=== PATIENT | female | born 1955 | race Hispanic/Latino ===

== ENCOUNTER 2017-03-19 18:36 | Emergency (ER) | payer SELFPAY ==
[2017-03-19 19:42] LABS: Basophils % (Auto) 0.6 % (0.0-1.8); Eosinophils % (Auto) 1.3 % (0.0-4.3); Hematocrit 36.7 % (30.3-42.9); Hemoglobin 12.1 gm/dl (10.1-14.3); Mean Corpuscular HGB Conc 33 % (30-34); Mean Corpuscular Hemoglobin 34 pg (28-32); Mean Corpuscular Volume 101 fl (79-97); Platelet Count 269 K/mm3 (140-440); Red Blood Count 3.61 M/mm3 (3.65-5.03); Red Cell Distribution Width 14.7 % (13.2-15.2); White Blood Count 11.1 K/mm3 (4.5-11.0)
[2017-03-19 19:59] LABS: Bacteria,Urine 1+ /HPF (Negative); Bilirubin,Urine NEG (Negative); Blood,Urine MOD (Negative); Ketones,Urine NEG (Negative); Leukocyte Esterase,Urine NEG (Negative); Mucus,Urine FEW /HPF; Nitrite,Urine NEG (Negative); Protein,Urine <15 mg/dL mg/dL (Negative); Urobilinogen,Urine < 2.0 mg/dL (<2.0)
[2017-03-19 20:05] LABS: Anion Gap 19 mmol/L; BUN/Creatinine Ratio 28.33; Blood Urea Nitrogen 17 mg/dL (7-17); Carbon Dioxide 25 mmol/L (22-30); Chloride 102.1 mmol/L (98-107); Glucose 119 mg/dL (65-100); Potassium 3.5 mmol/L (3.6-5.0); Sodium 143 mmol/L (137-145)
[2017-03-19 20:16] LABS: Calcium 12.3 mg/dL (8.4-10.2)
[2017-03-20] MEDS ORDERED: MORPHINE ONE (01:14)
[2017-03-20] MEDS ORDERED: ZOFRAN ONE ×2 (01:14→04:47)
[2017-03-20] MEDS ORDERED: DILAUDID ONE (01:23)
[2017-03-20] MEDS ORDERED: DILAUDID IV ONE (01:33)
[2017-03-20] MEDS ORDERED: ZOFRAN IV ONE ×3 (01:33→04:57)
[2017-03-20] MEDS ORDERED: NACL 0.9% 1000 ML 1,000 ML IV ONE (02:26)
[2017-03-20] MEDS ORDERED: NACL ONE (03:00)
--- NOTE | 2017-03-20 04:26 | Cat Scan Report ---
FINAL REPORT PROCEDURE: CT ABDOMEN PELVIS W CON TECHNIQUE: Computerized axial tomography of the abdomen and pelvis was performed after the IV injection of iodinated nonionic contrast. HISTORY: ABD PAIN COMPARISON: No prior studies are available for comparison. FINDINGS: Visualized lower thorax: No significant abnormality. Liver: Normal size and attenuation. Spleen: Normal size and attenuation. Gallbladder and biliary system: There has been a cholecystectomy. The bile ducts are normal in caliber.. Pancreas: Normal. Adrenals: Normal. Kidneys: There are bilateral kidney cysts. There are no kidney stones. There is no hydronephrosis.. GI tract: There is irregular thickening of the gastric antrum and duodenal bulb with inflammation of the surrounding fat indicating gastritis or ulcer disease. There is no go perforation or obstruction. Tumor is considered unlikely but not excluded. Upper endoscopy may be indicated. The small bowel and colon are unremarkable. The appendix is normal.. Lymph nodes and mesentery: Normal. Vasculature: There is calcified plaque in the abdominal aorta. There is no aneurysm.. Bladder: Normal. Reproductive organs: There has been a hysterectomy.. Peritoneum: There is no ascites, free air, abscess or adenopathy.. Musculoskeletal structures: There has been lower back surgery.. Other: None. IMPRESSION: There is irregular thickening of the gastric antrum and duodenal bulb with inflammation of the surrounding fat indicating gastritis or ulcer disease. There is no og perforation or obstruction. Tumor is considered unlikely but not excluded. Upper endoscopy may be indicated. The small bowel and colon are unremarkable. The appendix is normal.. There has been a cholecystectomy. The bile ducts are normal in caliber.. There are bilateral kidney cysts. There are no kidney stones. There is no hydronephrosis.. There has been a hysterectomy.. There is no ascites, free air, abscess or adenopathy
--- NOTE | 2017-03-20 04:35 | Emergency Department Report ---
HPI - General Chief Complaint: Chest Pain Time Seen by Provider: 03/20/17 01:12 - HPI HPI: Abdominal pain, epigastric pain and burning in sensation, no nausea. Patient states symptomatically gone on for the past 2 months but Worse today. ED Past Medical Hx - Past Medical History Hx Hypertension: Yes Hx GERD: Yes - Surgical History Hx Internal Defibrillator: Yes Additional Surgical History: back surgery x 3. reflux surgery. right foot surgery. kidney surgery - Social History Smoking Status: Current Every Day Smoker - Medications Home Medications: Home Medications Medication Instructions Recorded Confirmed Last Taken Type ALPRAZolam [Xanax] 0.5 mg PO BID PRN 07/03/13 07/03/13 07/02/13 21:00 History Albuterol Sulfate [Ventolin HFA] 2 puff IH Q4H PRN #1 hfa.aer.ad 07/03/13 Unknown Rx Azithromycin [Zithromax Z-IRA] 250 mg PO DAILY #4 tab 07/03/13 Unknown Rx Prednisone 40 mg PO QDAY #8 tablet 07/03/13 Unknown Rx amLODIPine [Norvasc] 10 mg PO DAILY 07/03/13 07/03/13 07/01/13 09:00 History Omeprazole 40 mg PO DAILY #30 capsule. 03/20/17 Unknown Rx ED Review of Systems ROS: Stated complaint: ABD PAIN X 3 DAYS Other details as noted in HPI Comment: All other systems reviewed and negative Cardiovascular: chest pain Gastrointestinal: abdominal pain, nausea Physical Exam - Physical Exam Vital Signs: Vital Signs 03/19/17 03/20/17 19:06 01:36 Temperature 98.2 F 98 F Pulse Rate 91 H 87 Respiratory 18 16 Rate Blood Pressure 140/77 Blood Pressure 158/76 [Left] O2 Sat by Pulse 100 96 Oximetry Physical Exam: Gen. alert and oriented 3 in no distress Head atraumatic normocephalic Eyes PERR LA EOMI Chest regular rate and rhythm normal S1-S2 lungs clear bilaterally Abdomen soft nondistended Back no point tenderness paravertebral tenderness Neuro no focal deficit. Psych normal mood. ED Course Vital Signs 03/19/17 03/20/17 19:06 01:36 Temperature 98.2 F 98 F Pulse Rate 91 H 87 Respiratory 18 16 Rate Blood Pressure 140/77 Blood Pressure 158/76 [Left] O2 Sat by Pulse 100 96 Oximetry ED Medical Decision Making - Lab Data Result diagrams: 03/19/17 19:29 03/19/17 19:29 Critical care attestation.: If time is entered above; I have spent that time in minutes in the direct care of this critically ill patient, excluding procedure time. ED Disposition Clinical Impression: Gastritis Disposition: DC-01 TO HOME OR SELFCARE Is pt being admited?: No Does the pt Need Aspirin: No Condition: Stable Prescriptions: Omeprazole 40 mg PO DAILY #30 capsule. Referrals: JAKY CHAVIRA ANP [Primary Care Provider] - 3-5 Days
[2017-03-20 05:04] VITALS: BP 128/72
== END 2017-03-20 05:06 | disposition home or self-care (01) ==
LOC: ED 18:36
DX: K29.70 Gastritis, unspecified, without bleeding (principal); I10 Essential (primary) hypertension; K21.9 Gastro-esophageal reflux disease without esophagitis
CPT/HCPCS: 36415; 74177; 80048; 81001; 84484; 85025; 93005; 93010; 96361; 96374; 96375; 96376; 99285; J1170; J2405; J7030; J2270

== ENCOUNTER 2020-03-12 12:11 | Outpatient (CLI) | payer MEDICARE, OTHER ==
--- NOTE | 2020-03-12 17:57 | Cat Scan Report ---
CT Enterography w/con INDICATION: Abdominal pain. Suspected Crohn's disease.. TECHNIQUE: All CT scans at this location are performed using the following dose modulation technique: Automated exposure control. CONTRAST: Omnipaque 350, 100 cc IV injection. Oral contrast. COMPARISON: CT abdomen and pelvis 03/20/2017. CT abdomen: The parenchymal organs are unremarkable in appearance other than benign-appearing renal c ysts. Negative for abdominal mass, fluid or inflammation. The bowel is not dilated or thickened. Status post previous cholecystectomy. Extrahepatic biliary dilatation is likely on this basis. CT PELVIS: Negative for mass, adenopathy or inflammation. No abnormal enhancing bowel is identified. The terminal ileum is well seen. Status post previous hysterectomy. IMPRESSION: 1. No CT evidence of active inflammatory bowel disease. 2. Prominence of the extrahepatic bile duct is likely on the basis of previous cholecystectomy. Signer Name: Guru Yanez MD Signed: 03/12/2020 5:52 PM Workstation Name: [id number]
== END 2020-03-12 12:12 | disposition home or self-care (01) ==
LOC: CT 12:11
PROVIDERS: ATTEND Internal Medicine Gastroenterology
DX: R93.3 Abnormal findings on diagnostic imaging of other parts of digestive tract (principal); K56.600 Partial intestinal obstruction, unspecified as to cause; Z90.49 Acquired absence of other specified parts of digestive tract
CPT/HCPCS: 36415; 74177; 82565; 84520; Q9967